=== PATIENT | male | born 1935 | race Hispanic/Latino ===

== ENCOUNTER 2018-07-03 14:08 | Outpatient (CLI) | payer MEDICARE, OTHER ==
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
== END 2018-07-03 14:09 | disposition home or self-care (01) ==
LOC: SCSRAD 14:08
PROVIDERS: ATTEND Nurse Practitioner Family
DX: Z04.3 Encounter for examination and observation following other accident (principal); W19.XXXA Unspecified fall, initial encounter

== ENCOUNTER 2019-09-01 18:40 | Inpatient (IN) | payer MEDICARE, OTHER ==
[~2019-09-01 18:40] MED LIST: Iopamidol-370 76% 500 ML 1 ML ONE
[2019-09-01 19:13] LABS: #Basophils 0.1 thou/uL (0.0-0.2); #Eosinphils 0.1 thou/uL (0.0-0.7); #Lymphocytes 1.7 thou/uL (1.20-3.40); #Monocytes 0.5 thou/uL (0.11-0.59); #Neutrophils 10.3 thou/uL (1.40-6.50); %Basophils 0.4 % (0.0-1.0); %Eosinophils 0.9 % (0.0-10.0); %Lymphocytes 13.7 % (21.0-51.0); %Monocytes 4.2 % (0.0-10.0); %Neutrophils 80.8 % (42.0-75.0); Hemoglobin 14.6 g/dL (14.0-18.0); Mean Corpuscular HGB CONC 34.2 g/dL (32.0-36.0); Mean Corpuscular Hemoglobin 33.2 pg (27.0-31.0); Mean Corpuscular Volume 97.2 fL (78.0-98.0); Mean Platelet Volume 10.8 fL (7.4-10.4); Platelet Count 141 thou/uL (130-400); RBC Distribution Width 11.5 % (11.5-14.5); Red Blood Cell (RBC) Count 4.38 mill/uL (4.70-6.10); White Blood Cell (WBC) Count 12.7 thou/uL (4.8-10.8)
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
[2019-09-01 19:35] LABS: ALT (SGPT) 25 U/L (8-55); AST (SGOT) 36 U/L (5-34); Albumin 4.5 g/dL (3.4-4.8); Alkaline Phosphatase 56 U/L (40-110); Anion Gap 16 mmol/L (10-20); BUN (Urea Nitrogen) 14 mg/dL (8.4-25.7); Bilirubin, Total 0.5 mg/dL (0.2-1.2); Calc. Creatinine Clearance 0 mL/min (70-130); Calcium 9.4 mg/dL (7.8-10.44); Carbon Dioxide 25 mmol/L (23-31); Chloride 104 mmol/L (98-107); Estimated GFR-MDRD 61; Globulin 2.7 g/dL (2.4-3.5); Glucose 143 mg/dL (83-110); Potassium 4.9 mmol/L (3.5-5.1); Protein, Total 7.2 g/dL (5.8-8.1); Sodium 140 mmol/L (136-145)
[2019-09-01 19:37] LABS: Troponin I Less than 0.010 ng/mL (< 0.028)
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
[2019-09-01] MEDS ORDERED: Ondansetron PF 4 MG/2 ML Vial ONE (20:36)
[2019-09-01] MEDS ORDERED: Morphine 4 MG/ML VIAL ONE (20:36)
[2019-09-01] MEDS ORDERED: Adacel (T-DAP) 0.5 ML SYRINGE ONE (20:37)
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
[2019-09-01] MEDS ORDERED: Ondansetron PF 4 MG/2 ML Vial IVP PRN (21:21)
[2019-09-01] MEDS ORDERED: Dextrose 5% in Water 1,000 ML IV PRN (21:21)
[2019-09-01] MEDS ORDERED: Dextrose 50% Abboject 50 ML SYRINGE SLOW IVP PRN (21:21)
[2019-09-01] MEDS ORDERED: Insulin Regular 300 UNITS/3 ML VIAL SC PRN (21:21)
[2019-09-01] MEDS ORDERED: Ondansetron ODT 4 MG TAB PO PRN (21:21)
[2019-09-01] MEDS ORDERED: Morphine 2 MG/ML SYRINGE SLOW IVP PRN (21:21)
[2019-09-01] MEDS ORDERED: hydrALAZINE 20 MG/ML VIAL SLOW IVP PRN (21:21)
[2019-09-01] MEDS ORDERED: Cyclobenzaprine 10 MG TAB PO PRN (21:26)
[2019-09-01 21:39] LABS: Magnesium 1.7 mg/dL (1.6-2.6); Phosphorus 3.5 mg/dL (2.3-4.7)
[2019-09-01] MEDS ORDERED: Magnesium 2 GM/50 ML 2 GM in Premix Bag 1 BAG IVPB SCH (22:00)
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
[2019-09-02] MEDS: Ibuprofen 600 MG TAB PO SCH ×3 (00:35→16:41)
[2019-09-02] MEDS: traMADol HCl 50 MG TAB PO SCH ×3 (00:41→12:51)
[2019-09-02] MEDS: Acetaminophen 500 MG TAB PO SCH ×3 (00:42→12:51)
[2019-09-02 01:28] VITALS: BMI 30.9
[2019-09-02] MEDS ORDERED: Senokot S 8.6-50 MG TAB PO SCH (09:00)
[2019-09-02] MEDS ORDERED: Polyethylene Glycol 3350 17 GM Packet PO SCH (09:00)
[2019-09-02] MEDS: Heparin 5,000 UNITS/ML VIAL SC SCH ×2 (09:12→16:52)
[2019-09-02] MEDS: Gabapentin 300 MG CAP PO SCH ×2 (09:12→16:41)
--- NOTE | 2019-09-02 09:12 | RAD ---
PORTABLE CHEST: HISTORY: Followup of apical pneumothorax. COMPARISON: Prior day's study. FINDINGS: Heart size is within normal limits. There are some atherosclerotic changes of the aorta. It is diffic ult to definitely appreciate a left sided pneumothorax on this study. Atelectatic changes are seen in the lung bases. IMPRESSION: It is difficult to definitively identify an apical pneumothorax today. There is a questionable small pleural reflection seen, which could indicate a tiny apical pneumothorax on the left. Follow-up chest films would be suggested. POS: [facility]
--- NOTE | 2019-09-02 15:04 | RAD ---
XR Chest 1 View Portable HISTORY: Left-sided pneumothorax COMPARISON: Earlier exam of 7:08 AM from the same date FINDINGS: The heart size is normal. The aorta is tortuous. There is continued elevation the right hem idiaphragm. Scarring in the lingula is again seen. A tiny left apical pneumothorax is present.
[2019-09-02 16:26] VITALS: BP 123/73; TEMP 98.2
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
== END 2019-09-02 16:50 | disposition home or self-care (01) | DRG 200 ==
LOC: ERS 18:40 → MERGE 09-02 00:15 → SURG A 09-02 00:15
PROVIDERS: ADMIT Surgery; ATTEND Surgery
DX: S27.0XXA Traumatic pneumothorax, initial encounter (principal); S32.028A Other fracture of second lumbar vertebra, initial encounter for closed fracture; S22.20XA Unspecified fracture of sternum, initial encounter for closed fracture; S22.43XA Multiple fractures of ribs, bilateral, initial encounter for closed fracture; E11.9 Type 2 diabetes mellitus without complications; F43.10 Post-traumatic stress disorder, unspecified; I10 Essential (primary) hypertension; H54.40 Blindness, one eye, unspecified eye; V89.1XXA Person injured in unspecified nonmotor-vehicle accident, nontraffic, initial encounter; Z98.42 Cataract extraction status, left eye; Z79.84 Long term (current) use of oral hypoglycemic drugs; Z87.891 Personal history of nicotine dependence; R40.2412 Glasgow coma scale score 13-15, at arrival to emergency department
CPT/HCPCS: 36416; 70450; 71045; 71260; 72125; 74177; 80053; 83735; 84100; 84484; 85025; 90471; 90715; 93005; 96374; 96375; G0390; J1644; J1815; J2270; J2405; J3475; Q9967

== ENCOUNTER 2019-09-18 08:37 | Outpatient (CLI) | payer MEDICARE, OTHER ==
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
== END 2019-09-18 08:38 | disposition home or self-care (01) ==
LOC: BICRAD 08:37
PROVIDERS: ATTEND Podiatrist
DX: S22.42XD Multiple fractures of ribs, left side, subsequent encounter for fracture with routine healing (principal); J93.9 Pneumothorax, unspecified
CPT/HCPCS: 71046